=== PATIENT | male | born 1975 | race Caucasian/White ===

== ENCOUNTER 2016-11-26 21:43 | Emergency (ER) | payer BC ==
[2016-11-26 21:55] VITALS: BP 125/85
[2016-11-26] MEDS ORDERED: Albuterol/Ipratropium 3.0-0.5 MG/3 ML Neb Soln NEB ONE (22:13)
--- NOTE | 2016-11-26 22:47 | EDM.PDOC ---
ED HISTORY OF PRESENT ILLNESS - General Chief Complaint: Respiratory Problem Stated Complaint: COUGH Time Seen by Provider: 11/26/16 21:53 Source of Information: Reports: Patient, Family History Limitations: Reports: No limitations - History of Present Illness INITIAL COMMENTS - FREE TEXT/NARRATIVE: Patient essentially here for complaint of cough. Diagnosed with Influenza B last weekend. Sick for a total of approximately 8-9 days. Has intermittent rib discomfort with cough. No fevers. No other pain. No shortness of breath or wheezing. Coughs up mucus, non-bloody. Gets gaggy at times with cough but no actual emesis. Denies other complaints such as chills, weakness, GI/ changes. No other complaints. - Related Data Allergies/ADRs: Allergies Allergy/AdvReac Type Severity Reaction Status Date / Time No Known Allergies Allergy Verified 11/26/16 21:44 Home Meds: Home Meds Dorzolamide HCl/Timolol Maleat [Dorzolamide-Timolol Eye Drops] 1 drop OP BID 09/13 [History] Past Medical History - Past Health History Medical/Surgical History: Denies Medical/Surgical History Social & Family History - Tobacco Use Smoking Status *Q: Former Smoker Years of Tobacco use: 10 Packs/Tins Daily: 0.5 Used Tobacco, but Quit: Yes Month Tobacco Last Used: unsure Second Hand Smoke Exposure: No - Caffeine Use Caffeine Use: Reports: Soda - Alcohol Use Days Per Week of Alcohol Use: 7 Number of Drinks Per Day: 2 Total Drinks Per Week: 14 Date of Last Drink: 11/19/16 - Recreational Drug Use Recreational Drug Use: No ED ROS GENERAL - Review of Systems Review Of Systems: ROS reveals no pertinent complaints other than HPI. ED EXAM, GENERAL - Physical Exam Exam: See Below Exam Limited By: No limitations General Appearance: alert, WD/WN, no apparent distress Eye Exam: bilateral eye: EOMI, PERRL Ears: normal external exam Nose: normal inspection Throat/Mouth: Normal inspection, Normal voice, No airway compromise Head: atraumatic, normocephalic Neck: normal inspection, supple, non-tender, full range of motion. No: lymphadenopathy (L), lymphadenopathy (R) Respiratory/Chest: no respiratory distress, lungs clear, no accessory muscle use , chest non-tender, other (faint crackles noted mid and upper lung franklin bilaterally. ). No: rhonchi, wheezing, stridor Cardiovascular: normal peripheral pulses, regular rate, rhythm, no murmur Peripheral Pulses: 2+: radial (L), radial (R) GI/Abdominal: normal bowel sounds, soft, non tender, no distention Back Exam: normal inspection Extremities: normal inspection, normal capillary refill Neurological: alert, oriented, normal cognition, normal gait, no motor/sensory deficits Psychiatric: normal affect, normal mood Skin Exam: Warm, Dry, Intact, Normal color Course - Vital Signs Last Recorded V/S: Last Vital Signs Temp 36.8 C 11/26/16 21:46 Pulse 96 11/26/16 21:46 Resp 16 11/26/16 21:46 BP 125/85 11/26/16 21:46 Pulse Ox 96 11/26/16 21:46 - Orders/Labs/Meds Orders: Active Orders 24 hr Category Date Time Status RT Aerosol Therapy [RC] ASDIRECTED Care 11/26/16 22:13 Ordered Chest 2V [CR] Stat Exams 11/26/16 21:53 Taken Meds: Medications Discontinued Medications Generic Name Dose Route Start Last Admin Trade Name Brandonq PRN Reason Stop Dose Admin Albuterol/Ipratropium 3 ml 11/26/16 22:13 11/26/16 22:28 Duoneb 3.0-0.5 Mg/3 Ml NEB 11/26/16 22:14 3 ml ONETIME ONE Administration - Radiology Interpretation Free Text/Narrative:: Chest xray unremarkable. Confirmed by Radiology. - Re-Assessments/Exams Free Text/Narrative Re-Assessment/Exam: No fevers/chills. Unremarkable Xray. Suspect cough is due to recent Influenza B and antibiotics are not indicated at this time. DuoNeb given. Patient will be sent home with ER stock of Prednisone, Promethazine/Codeine cough medication, and Proventil inhaler. Use of all of the above discussed with patient. Normal anticipated course of influenza and cough also discussed. Patient is to follow up as needed. Departure - Departure Time of Disposition: 23:00 Disposition: Home, Self-Care 01 Condition: good Clinical Impression: Cough, Influenza B Forms: ED Department Discharge Additional Instructions: Take Prednisone daily (4 tabs a day) for full 5 days. Use inhaler REGULARLY every 6-8 hours for next 7 days then go to as needed. Use liquid cough medication 1 tsp every 4-6 hours as needed. Follow up for recheck if symptoms worsen, especially if you develop a fever. - My Orders Last 24 Hours: My Active Orders 11/26/16 21:53 Chest 2V [CR] Stat 11/26/16 22:13 RT Aerosol Therapy [RC] ASDIRECTED - Assessment/Plan Last 24 Hours: My Active Orders 11/26/16 21:53 Chest 2V [CR] Stat 11/26/16 22:13 RT Aerosol Therapy [RC] ASDIRECTED
== END 2016-11-26 23:00 | disposition home or self-care (01) ==
LOC: LL.ED 21:43
DX: J10.1 Influenza due to other identified influenza virus with other respiratory manifestations (principal); Z87.891 Personal history of nicotine dependence
CPT/HCPCS: 71020; 94640; 94664; 99283